=== PATIENT | female | born 1930 | race Caucasian/White ===

== ENCOUNTER → 2018-11-10 | Emergency (ER) | payer OTHER ==
[~2018-11-10] VITALS: Ht 162.6 cm; Wt 68.0 kg
[~2018-11-10] MED LIST: AMLODIPINE BESI25 GM; HYZAAR 100-121 UDTAB; LEVOTHYROXINE25 MCG; METOPROLOL SUCC50 MG; PRAVASTATIN SOD20 MG; ZANTAC300 MG
== END | disposition designated cancer center or children's hospital (05) ==
LOC: ER 21:08
DX: S72.142A Displaced intertrochanteric fracture of left femur, initial encounter for closed fracture (principal); W18.09XA Striking against other object with subsequent fall, initial encounter; Y93.89 Activity, other specified; Y92.098 Other place in other non-institutional residence as the place of occurrence of the external cause; Y99.8 Other external cause status